=== PATIENT | male | born 1985 ===

== ENCOUNTER 2017-03-17 22:39 | Emergency (ER) | payer SELFPAY ==
[2017-03-17 22:51] VITALS: BP 126/83; PULSE 104; RESP 20; TEMP 98.8; O2SAT 96
--- NOTE | 2017-03-17 23:14 | C.PDOC ---
History Of Present Illness Patient is a 31 y/o male who presents to the ED with a complaint of left upper toothache for the last two days. Patient notes significant swelling to the left side of face since early today associated with worsening or localized left upper toothache. Pt admits, took Tramadol and Amoxicillin at home with no relief. Otherwise, pt denies high fever, chills, headache, dizziness, visual changes, focal deficits, neck pain, drooling, trismus, dyspnea, CP, SOB, wheezing, denies any other active complaints. Ambulate to ED for evaluation, not in any apparent distress. Time Seen by Provider: 03/17/17 22:55 Chief Complaint (Nursing): Dental Pain History Per: Patient History/Exam Limitations: no limitations Onset/Duration Of Symptoms: Days (2 days) Current Symptoms Are (Timing): Still Present Recent travel outside of the [place]: No Past Medical History Reviewed: Historical Data, Nursing Documentation, Vital Signs Vital Signs: Last Vital Signs Temp 98.8 F 03/17/17 22:47 Pulse 104 H 03/17/17 22:47 Resp 20 03/17/17 22:47 BP 126/83 03/17/17 22:47 Pulse Ox 96 03/17/17 23:55 - Medical History PMH: No Chronic Diseases Surgical History: No Surg Hx Family History: States: No Known Family Hx - Social History Hx Alcohol Use: No Hx Substance Use: No - Immunization History Hx Tetanus Toxoid Vaccination: No Hx Influenza Vaccination: No Hx Pneumococcal Vaccination: No Review Of Systems Except As Marked, All Systems Reviewed And Found Negative. Constitutional: Negative for: Fever, Chills ENT: Positive for: Mouth Pain (left upper toothache), Mouth Swelling. Negative for: Ear Discharge, Nose Discharge, Throat Pain, Throat Swelling Cardiovascular: Negative for: Chest Pain Respiratory: Negative for: Cough, Shortness of Breath, Wheezing Gastrointestinal: Negative for: Nausea, Vomiting, Abdominal Pain Skin: Negative for: Rash Neurological: Negative for: Weakness, Numbness, Altered Mental Status, Headache , Dizziness Physical Exam - Physical Exam Appears: Well, Non-toxic, No Acute Distress Skin: Normal Color, Warm, Dry, No Rash Head: Normacephalic Eye(s): bilateral: PERRL Ear(s): Bilateral: Normal Nose: No Flaring, No Discharge Oral Mucosa: Moist, No Drooling, No Trismus Tongue: Normal Appearing Lips: Normal Appearing Teeth: Tender To Palpation (Left upper 2nd premolar-1st molar), Other ((+) diffuse left facial edema, no erythema, no flactulance) Gingiva: Erythema (Left upper 2nd premolar-1st molar), Swelling (Left upper 2nd premolar-1st molar), Tender (Left upper 2nd premolar-1st molar) Throat: No Erythema, No Exudate, No Drooling Neck: Supple, Other ((-) meningeal sign) Lymphatic: No Adenopathy (cervical) Cardiovascular: Rhythm Regular, No JVD Respiratory: No Decreased Breath Sounds, No Accessory Muscle Use, No Stridor, No Wheezing Extremity: Normal ROM, No Pedal Edema, No Deformity, No Swelling Neurological/Psych: Oriented x3, Normal Speech, Normal Motor, Normal Sensation, Normal Reflexes ED Course And Treatment O2 Sat by Pulse Oximetry: 96 Pulse Ox Interpretation: Normal Progress Note: On re-eval, pt is afebrile, hemodynamicaly stable. Pt reports, moderate improvement in sx. Tolerate PO well in ED. No drooling or trismus. ENT: exam c/w left upper tooth abscess. No facial cellulitis. Neck: Supple, (- ) meningeal sign. Lungs: CTA B/L, BS equal B/L. Neurologicaly intact. Pt advised on course of ds. ref. to F/u with Dentist in 2-3 days for re-eval. return to ED if any worsening or new changes. Disposition Counseled Patient/Family Regarding: Diagnosis, Need For Followup, Rx Given - Disposition Referrals: [facility] [place] [Provider Group] [facility] [Provider Group] Disposition: HOME/ ROUTINE Disposition Time: 00:15 Condition: STABLE Additional Instructions: WARM SALTY WATER TOOTH BATHS 2-3 TIMES DAILY FOR 5 MINUTES TAKE MEDICATION PRESCRIBED FOLLOW UP WITH DENTIST IN 2-3 DAYS FOR RE-EVALUATION. RETURN TO ED IF ANY WORSENING OR NEW CHANGES. Prescriptions: Clindamycin [Cleocin] 300 mg PO Q6 #28 cap Ketorolac Tromethamine [Toradol] 10 mg PO BID #10 tab Instructions: Dental Abscess (ED) Forms: [facility] [facility] ([place]) - Clinical Impression Clinical Impression: Dental abscess - Scribe Statement The provider has reviewed the documentation as recorded by the Kellyibdoug Mena All medical record entries made by the Scribe were at my direction and personally dictated by me. I have reviewed the chart and agree that the record accurately reflects my personal performance of the history, physical exam, medical decision making, and the department course for this patient. I have also personally directed, reviewed, and agree with the discharge instructions and disposition.
[2017-03-17] MEDS ORDERED: Sodium Chloride 0.9% 1,000 ML IV ONE (23:30)
[2017-03-17] MEDS ORDERED: Sodium Chloride 0.9% 1,000 ML ONE (23:41)
[2017-03-17] MEDS ORDERED: Clindamycin 600mg/50ml NS 600 MG/50 ML BAG IVPB STA (23:47)
== END 2017-03-18 00:47 | disposition home or self-care (01) ==
LOC: C.ER 22:39
DX: K04.7 Periapical abscess without sinus (principal)
CPT/HCPCS: 96361; 96365; 96375; 99283; J1885; J2930; J7040